=== PATIENT | female | born 1965 | race Two or more races ===

== ENCOUNTER 2019-03-24 05:00 | Emergency (ER) | payer SELFPAY ==
[~2019-03-24] VITALS: Ht 157.5 cm; Wt 68.0 kg
--- NOTE | 2019-03-24 05:16 | PHYS DOC ---
Adult General Chief Complaint Chief Complaint: CHEST PAIN HPI HPI Patient is a 53 year old f with cc of chest pain onset one year ago when she accidentally swallowed some methampheatmine she thoguht it was salt on the table since then 4 er visits for chest pain pmh none meds none no fh of cad tonight the sharp left side chest pain comes a few second at a time accompanied by "nervousness" as well as cramping of both hands and both legs and dry mouth. went to take a shower felt heart racing "and i kept feeling more and more nervous" not exertional Review of Systems Review of Systems Constitutional: Denies fever or chills [] Eyes: Denies change in visual acuity, redness, or eye pain [] HENT: Denies nasal congestion or sore throat [] Respiratory: Denies cough or shortness of breath [] Cardiovascular: No additional information not addressed in HPI [] GI: Denies abdominal pain, nausea, vomiting, bloody stools or diarrhea [] : Denies dysuria or hematuria [] Musculoskeletal: Denies back pain or joint pain [] Integument: Denies rash or skin lesions [] Neurologic: Denies headache, focal weakness or sensory changes [] Endocrine: Denies polyuria or polydipsia [] All other systems were reviewed and found to be within normal limits, except as documented in this note. Current Medications Current Medications Current Medications Medications (Trade) Dose Ordered Sig/Radha Start Time Stop Time Status Last Admin Dose Admin Aspirin (Children'S Aspirin) 324 mg 1X ONCE 03/24/19 06:00 03/24/19 06:01 03/24/19 05:55 324 MG Lorazepam (Ativan) 1 mg 1X ONCE 03/24/19 06:00 03/24/19 06:01 03/24/19 05:54 1 MG Allergies Allergies Allergies Coded Allergies Type Severity Reaction Last Updated Verified No Known Drug Allergies 03/24/19 No Physical Exam Physical Exam Constitutional: Well developed, well nourished, no acute distress, non-toxic appearance. [] HENT: Normocephalic, atraumatic, bilateral external ears normal, oropharynx m oist, no oral exudates, nose normal. [] Eyes: PERRLA, EOMI, conjunctiva normal, no discharge. [] Neck: Normal range of motion, no tenderness, supple, no stridor. [] Cardiovascular:Heart rate regular rhythm, no murmur [] Lungs & Thorax: Bilateral breath sounds clear to auscultation [] Abdomen: Bowel sounds normal, soft, no tenderness, no masses, no pulsatile masses. [] Skin: Warm, dry, no erythema, no rash. [] Back: No tenderness, no CVA tenderness. [] Extremities: No tenderness, no cyanosis, no clubbing, ROM intact, no edema. [] Neurologic: Alert and oriented X 3, normal motor function, normal sensory function, no focal deficits noted. [] Psychologic: Affect normal, judgement normal, mood anxiety noted. Current Patient Data Vital Signs Vital Signs Date Time Temp Pulse Resp B/P (MAP) Pulse Ox O2 Delivery O2 Flow Rate FiO2 03/24/19 05:04 98.7 92 16 158/76 (103) 99 Room Air 98.7 Lab Values Laboratory Tests Test 03/24/19 05:10 White Blood Count 10.0 x10^3/uL (4.0-11.0) Red Blood Count 4.54 x10^6/uL (3.50-5.40) Hemoglobin 13.6 g/dL (12.0-15.5) Hematocrit 40.4 % (36.0-47.0) Mean Corpuscular Volume 89 fL (79-100) Mean Corpuscular Hemoglobin 30 pg (25-35) Mean Corpuscular Hemoglobin Concent 34 g/dL (31-37) Red Cell Distribution Width 13.1 % (11.5-14.5) Platelet Count 177 x10^3/uL (140-400) Neutrophils (%) (Auto) 73 % (31-73) Lymphocytes (%) (Auto) 17 % (24-48) L Monocytes (%) (Auto) 6 % (0-9) Eosinophils (%) (Auto) 3 % (0-3) Basophils (%) (Auto) 1 % (0-3) Neutrophils # (Auto) 7.3 x10^3/uL (1.8-7.7) Lymphocytes # (Auto) 1.7 x10^3/uL (1.0-4.8) Monocytes # (Auto) 0.6 x10^3/uL (0.0-1.1) Eosinophils # (Auto) 0.3 x10^3/uL (0.0-0.7) Basophils # (Auto) 0.1 x10^3/uL (0.0-0.2) Prothrombin Time 11.8 SEC (11.7-14.0) Prothrombin Time INR 0.9 (0.8-1.1) Sodium Level 147 mmol/L (136-145) H Potassium Level 3.8 mmol/L (3.5-5.1) Chloride Level 111 mmol/L (98-107) H Carbon Dioxide Level 24 mmol/L (21-32) Anion Gap 12 (6-14) Blood Urea Nitrogen 18 mg/dL (7-20) Creatinine 0.6 mg/dL (0.6-1.0) Estimated GFR (Cockcroft-Gault) 104.2 BUN/Creatinine Ratio 30 (6-20) H Glucose Level 128 mg/dL (70-99) H Calcium Level 9.5 mg/dL (8.5-10.1) Total Bilirubin 0.1 mg/dL (0.2-1.0) L Aspartate Amino Transferase (AST) 12 U/L (15-37) L Alanine Aminotransferase (ALT) 21 U/L (14-59) Alkaline Phosphatase 121 U/L (46-116) H Troponin I Quantitative < 0.017 ng/mL (0.000-0.055) Total Protein 7.7 g/dL (6.4-8.2) Albumin 4.0 g/dL (3.4-5.0) Albumin/Globulin Ratio 1.1 (1.0-1.7) Laboratory Tests 03/24/19 05:10 Laboratory Tests 03/24/19 05:10 EKG EKG +nsr rate 90 normal qtc no stemi[] Radiology/Procedures Radiology/Procedures [] Impressions: Chest x-ray my interpretation was negative acute no pneumothorax bones normal heart normal Course & Med Decision Making Course & Med Decision Making Pertinent Labs and Imaging studies reviewed. (See chart for details) []heart score h 0 e 0 a 1 r 0 t 0 very atypical pain daily chest pain worse since midnight, i think one troponin is sufficient does not sound like a pe at all. no tachycardia or hypoxia. Patient was reassured to the best my ability she is quite anxious overall trial of Ativan low heart score safe for outpatient management Dragon Disclaimer Dragon Disclaimer This electronic medical record was generated, in whole or in part, using a voice recognition dictation system. Departure Departure Impression: Primary Impression: Chest pain Disposition: 01 HOME, SELF-CARE Condition: STABLE Scripts Lorazepam (ATIVAN) 1 Mg Tablet 1 MG PO BID PRN for ANXIETY / AGITATION, #20 TAB Prov: CARA QUINONES MD 03/24/19 CARA QUINONES MD Mar 24, 2019 05:15
[2019-03-24 05:33] LABS: BASO # 0.1 x10^3/uL (0.0-0.2); BASO % 1 % (0-3); EOS # 0.3 x10^3/uL (0.0-0.7); EOS % 3 % (0-3); HEMATOCRIT 40.4 % (36.0-47.0); HEMOGLOBIN 13.6 g/dL (12.0-15.5); LYMPH # 1.7 x10^3/uL (1.0-4.8); LYMPH % 17 % (24-48); MEAN CORPUSCULAR HEMOGLOBIN 30 pg (25-35); MEAN CORPUSCULAR HGB CONC 34 g/dL (31-37); MEAN CORPUSCULAR VOLUME 89 fL (79-100); MONO # 0.6 x10^3/uL (0.0-1.1); MONO % 6 % (0-9); NEUT # 7.3 x10^3/uL (1.8-7.7); NEUT % 73 % (31-73); PLATELET COUNT 177 x10^3/uL (140-400); RED BLOOD COUNT 4.54 x10^6/uL (3.50-5.40); RED CELL DISTRIBUTION WIDTH 13.1 % (11.5-14.5)
[2019-03-24 05:42] LABS: CALCIUM 9.5 mg/dL (8.5-10.1); CREATININE 0.6 mg/dL (0.6-1.0); GFR 104.2; POTASSIUM 3.8 mmol/L (3.5-5.1)
[2019-03-24 05:43] LABS: PROTHROMBIN TIME PATIENT 11.8 SEC (11.7-14.0)
[2019-03-24 05:47] LABS: ALBUMIN/GLOBULIN RATIO 1.1 (1.0-1.7); TOTAL BILIRUBIN 0.1 mg/dL (0.2-1.0); TOTAL PROTEIN 7.7 g/dL (6.4-8.2)
[2019-03-24] MEDS ORDERED: LORazepam 0.5 MG TABLET PO ONE (06:00)
[2019-03-24] MEDS ORDERED: ASPIRIN CHEWABLE 81 MG TABLET. PO ONE (06:00)
[2019-03-24] MEDS ORDERED: LORA-434 PO (06:00)
[2019-03-24 06:21] VITALS: BP 134/67
--- NOTE | 2019-03-24 07:04 | EKG ---
[address] [place] [address] Test Date: 2019-03-24 Test Time: 05:04:28 Pat Name: RJ VIVAS Department: Room: Gender: F Resident In Diagnostic Radiology: MARGARITA : 1965 Requested By: CARA QUINONES Order Number: [id number] Reading MD: Measurements Intervals [place] Rate: 90 P: 39 LA: 172 QRS: 29 QRSD: 86 T: 26 QT: 338 QTc: 417 Interpretive Statements SINUS RHYTHM NORMAL ECG No previous ECG available for comparison
--- NOTE | 2019-03-24 08:24 | RAD ---
EXAM: Chest, single view. HISTORY: Chest pain. COMPARISON: None. FINDINGS: A frontal view of the chest is obtained. There is no infiltrate, pleural effusion or pneumothorax. The heart is normal in size. IMPRESSION: No acute pulmonary finding. Electronically signed by: Margarita Curtis MD (03/24/2019 8:21 AM) [place] [id number]
== END 2019-03-24 06:17 | disposition home or self-care (01) ==
LOC: ER 05:00
DX: R07.89 Other chest pain (principal); R45.0 Nervousness; R25.2 Cramp and spasm; R00.0 Tachycardia, unspecified; R68.2 Dry mouth, unspecified
CPT/HCPCS: 36415; 71045; 80053; 84484; 85025; 85610; 93005; 99285-25

== ENCOUNTER 2019-03-30 02:59 | Emergency (ER) | payer SELFPAY ==
[~2019-03-30] VITALS: Ht 165.1 cm; Wt 74.8 kg
[~2019-03-30 02:59] MED LIST: LORA-434 PO
[2019-03-30] MEDS ORDERED: ASPIRIN 325 MG TABLET PO ONE (03:15)
[2019-03-30] MEDS ORDERED: IV NORMAL SALINE 1000ML BAG 1,000 ML IV ONE (03:15)
[2019-03-30] MEDS ORDERED: LIDO:MAALOX 1:1 20 ML SINGLE DOSE. PO PRN (03:30)
[2019-03-30] MEDS ORDERED: FAMOTIDINE 20 MG/2 ML VIAL IVP ONE (03:30)
[2019-03-30 03:50] LABS: BASO # 0.1 x10^3/uL (0.0-0.2); BASO % 1 % (0-3); BILIRUBIN,URINE NEGATIVE (NEG); CLARITY,URINE CLEAR; COLOR,URINE YELLOW; EOS # 0.3 x10^3/uL (0.0-0.7); EOS % 4 % (0-3); HEMATOCRIT 41.5 % (36.0-47.0); HEMOGLOBIN 13.9 g/dL (12.0-15.5); LYMPH # 1.9 x10^3/uL (1.0-4.8); LYMPH % 24 % (24-48); MEAN CORPUSCULAR HEMOGLOBIN 30 pg (25-35); MEAN CORPUSCULAR HGB CONC 34 g/dL (31-37); MEAN CORPUSCULAR VOLUME 88 fL (79-100); MONO # 0.6 x10^3/uL (0.0-1.1); MONO % 8 % (0-9); NEUT % 63 % (31-73); NITRITE,URINE NEGATIVE (NEG); PH,URINE 5.5; PLATELET COUNT 183 x10^3/uL (140-400); PROTEIN,URINE NEGATIVE (NEG-TRACE); RED BLOOD COUNT 4.69 x10^6/uL (3.50-5.40); RED CELL DISTRIBUTION WIDTH 13.4 % (11.5-14.5); UROBILINOGEN,URINE 0.2 mg/dL (0.2 mg/dL)
[2019-03-30 03:56] LABS: BACTERIA,URINE 0 /HPF (0-FEW); BARBITURATES NEG (NEG); BENZODIAZEPINES NEG (NEG); CANNABINOIDS NEG (NEG); COCAINE NEG (NEG); METHADONE NEG (NEG); OPIATES NEG (NEG); PHENCYCLIDINE NEG (NEG); RBC,URINE 0 /HPF (0-2); SQUAMOUS EPITHELIAL CELL,UR FEW /LPF
[2019-03-30 03:57] LABS: AMPHETAMINE/METHAMPHETAMINE NEG (NEG); PROTHROMBIN TIME PATIENT 12.2 SEC (11.7-14.0)
[2019-03-30 03:58] LABS: CALCIUM 9.6 mg/dL (8.5-10.1); CREATININE 0.7 mg/dL (0.6-1.0); GFR 87.2; POTASSIUM 3.8 mmol/L (3.5-5.1)
[2019-03-30 04:00] LABS: D-DIMER 0.44 ug/mlFEU (0.00-0.50)
[2019-03-30 04:03] LABS: ALBUMIN 4.2 g/dL (3.4-5.0); ALBUMIN/GLOBULIN RATIO 1.1 (1.0-1.7); MAGNESIUM 1.9 mg/dL (1.8-2.4); TOTAL BILIRUBIN 0.2 mg/dL (0.2-1.0); TOTAL PROTEIN 7.9 g/dL (6.4-8.2)
--- NOTE | 2019-03-30 04:05 | PHYS DOC ---
Past Medical History Past Medical History: Hypertension Past Surgical History: No Surgical History Smoking: Quit Greater Than 1 Year Alcohol Use: None Drug Use: None Adult General Chief Complaint Chief Complaint: Chest Pain HPI HPI Ms. Faust is a 53yo F w/ PMH significant for HTN, anxiety, and panic attacks presents w/ 1 day of rapid heartbeat, sense of impending doom, and epigastric tenderness w/ gastric reflux. Symptoms began around 10 AM while at "[facility]" but she did not have her lorazepam on her person at the time and was able to manage until she went to lay down for bed tonight. While laying in bed, her symptoms increased and she developed neck pain with a "my ears felt hot" sensation. States she could feel her heart try to "jump start like a car's transmission getting stuck and thumping." She denies MARROQUIN, nausea, vomiting, fever, chills, chest pain, or shortness of breath. States that she was previously seen on Sunday with similar symptoms and was treated for panic att acks. Review of Systems Review of Systems Constitutional: Denies fever or chills Eyes: Denies redness or eye pain HENT: Denies nasal congestion or sore throat Respiratory: Denies cough or shortness of breath Cardiovascular: Reports palpitations. Denies chest pain. GI: Reports epigastric pain and gastric reflux. Denies nausea, vomiting, diarrhea, constipation, or hematochezia. : Denies dysuria or hematuria. Musculoskeletal: Reports neck pain. Denies back or joint pain. Integument: Denies rash or skin lesions Neurologic: Denies headache, focal weakness or sensory changes Complete systems were reviewed and found to be within normal limits, except as documented in this note. Current Medications Current Medications Current Medications Medications (Trade) Dose Ordered Sig/Radha Start Time Stop Time Status Last Admin Dose Admin Aspirin (Milad Aspirin) 325 mg 1X ONCE 03/30/19 03:15 03/30/19 03:16 DC 03/30/19 03:47 325 MG Famotidine (Pepcid Vial) 20 mg 1X ONCE 03/30/19 03:30 03/30/19 03:31 DC 03/30/19 03:47 20 MG Lorazepam (Ativan Inj) 0.5 mg 1X ONCE 03/30/19 04:15 03/30/19 04:19 DC Multi-Ingredient Mouthwash/Gargle (Gi Cocktail) 20 ml PRN QID PRN 03/30/19 03:30 03/30/19 03:47 20 ML Sodium Chloride 1,000 ml @ 1,000 mls/hr 1X ONCE 03/30/19 03:15 03/30/19 04:14 DC 03/30/19 03:47 1,000 MLS/HR Allergies Allergies Allergies Coded Allergies Type Severity Reaction Last Updated Verified No Known Drug Allergies 03/24/19 No Physical Exam Physical Exam Constitutional: pressured speech, well developed, well nourished, no acute distress, non-toxic appearance HENT: Normocephalic, atraumatic, oropharynx dry Eyes: PERRL, EOMI, conjunctiva normal, no discharge Neck: Normal range of motion, no tenderness, supple, no cervical or supraclavicular LAD Cardiovascular: Heart rate normal, regular rhythm w/o gallops, rubs, or murmurs. UE radial pulses intact 2/4 b/l. Lungs & Thorax: Bilateral breath sounds clear to auscultation w/ mild exp iratory wheezing Abdomen: Soft, mildly distended, epigastric tenderness on deep palpation, normoactive BS x4 quadrants Skin: Warm, dry, no erythema, no rash Back: no CVA tenderness, mild cervical tenderness Extremities: No tenderness, ROM intact, no edema Neurologic: Alert and oriented X 3, normal motor function, normal sensory function, no focal deficits noted Psychologic: Affect normal, judgement normal, mood normal Current Patient Data Vital Signs Vital Signs Date Time Temp Pulse Resp B/P (MAP) Pulse Ox O2 Delivery O2 Flow Rate FiO2 03/30/19 03:11 97.8 74 16 175/91 (119) 98 Room Air 97.8 Lab Values Laboratory Tests Test 03/30/19 03:35 White Blood Count 8.0 x10^3/uL (4.0-11.0) Red Blood Count 4.69 x10^6/uL (3.50-5.40) Hemoglobin 13.9 g/dL (12.0-15.5) Hematocrit 41.5 % (36.0-47.0) Mean Corpuscular Volume 88 fL (79-100) Mean Corpuscular Hemoglobin 30 pg (25-35) Mean Corpuscular Hemoglobin Concent 34 g/dL (31-37) Red Cell Distribution Width 13.4 % (11.5-14.5) Platelet Count 183 x10^3/uL (140-400) Neutrophils (%) (Auto) 63 % (31-73) Lymphocytes (%) (Auto) 24 % (24-48) Monocytes (%) (Auto) 8 % (0-9) Eosinophils (%) (Auto) 4 % (0-3) H Basophils (%) (Auto) 1 % (0-3) Neutrophils # (Auto) 5.0 x10^3/uL (1.8-7.7) Lymphocytes # (Auto) 1.9 x10^3/uL (1.0-4.8) Monocytes # (Auto) 0.6 x10^3/uL (0.0-1.1) Eosinophils # (Auto) 0.3 x10^3/uL (0.0-0.7) Basophils # (Auto) 0.1 x10^3/uL (0.0-0.2) Prothrombin Time 12.2 SEC (11.7-14.0) Prothrombin Time INR 0.9 (0.8-1.1) Activated Partial Thromboplast Time 30 SEC (24-38) D-Dimer (Kyung) 0.44 ug/mlFEU (0.00-0.50) Urine Collection Type Unknown Urine Color Yellow Urine Clarity Clear Urine pH 5.5 Urine Specific [place] 1.010 Urine Protein Negative mg/dL (NEG-TRACE) Urine Glucose (UA) Negative mg/dL (NEG) Urine Ketones (Stick) Negative mg/dL (NEG) Urine Blood Negative (NEG) Urine Nitrite Negative (NEG) Urine Bilirubin Negative (NEG) Urine Urobilinogen Dipstick 0.2 mg/dL (0.2 mg/dL) Urine Leukocyte Esterase Trace (NEG) Urine RBC 0 /HPF (0-2) Urine WBC 1-4 /HPF (0-4) Urine Squamous Epithelial Cells Few /LPF Urine Bacteria 0 /HPF (0-FEW) Sodium Level 143 mmol/L (136-145) Potassium Level 3.8 mmol/L (3.5-5.1) Chloride Level 107 mmol/L (98-107) Carbon Dioxide Level 25 mmol/L (21-32) Anion Gap 11 (6-14) Blood Urea Nitrogen 25 mg/dL (7-20) H Creatinine 0.7 mg/dL (0.6-1.0) Estimated GFR (Cockcroft-Gault) 87.2 BUN/Creatinine Ratio 36 (6-20) H Glucose Level 138 mg/dL (70-99) H Calcium Level 9.6 mg/dL (8.5-10.1) Magnesium Level 1.9 mg/dL (1.8-2.4) Total Bilirubin 0.2 mg/dL (0.2-1.0) Aspartate Amino Transferase (AST) 9 U/L (15-37) L Alanine Aminotransferase (ALT) 16 U/L (14-59) Alkaline Phosphatase 124 U/L (46-116) H Creatine Kinase 122 U/L (26-192) Creatine Kinase MB (Mass) 1.7 ng/mL (0.0-3.6) Creatine Kinase MB Relative Index 1.4 % (0-4) Troponin I Quantitative < 0.017 ng/mL (0.000-0.055) JY-Hxd-Q-Type Natriuretic Peptide 17 pg/mL (0-124) Total Protein 7.9 g/dL (6.4-8.2) Albumin 4.2 g/dL (3.4-5.0) Albumin/Globulin Ratio 1.1 (1.0-1.7) Lipase 252 U/L (73-393) Urine Opiates Screen Neg (NEG) Urine Methadone Screen Neg (NEG) Urine Barbiturates Neg (NEG) Urine Phencyclidine Screen Neg (NEG) Urine Amphetamine/Methamphetamine Neg (NEG) Urine Benzodiazepines Screen Neg (NEG) Urine Cocaine Screen Neg (NEG) Urine Cannabinoids Screen Neg (NEG) Urine Ethyl Alcohol Neg (NEG) Laboratory Tests 03/30/19 03:35 Laboratory Tests 03/30/19 03:35 EKG EKG EKG obtained @ 0304 and read @ 03:07. NSR w/ no ST-elevations. 74 BPM.[] Radiology/Procedures Radiology/Procedures [] Course & Med Decision Making Course & Med Decision Making Pertinent Labs and Imaging studies reviewed. (See chart for details) Patient presented w/ atypical chest pain. EKG showed NSR w/o ST-elevations. Troponin and d-dimer negative. Patient stable for discharge with outpatient follow-up with PCP. She does have an appointment with her PCP on May 19 but was counseled on calling so she could be placed on a cancellation list to obtain an earlier appointment. Discussed findings and plan with patient and family, who acknowledge understanding and agreement. [] Dragon Disclaimer Dragon Disclaimer This electronic medical record was generated, in whole or in part, using a voice recognition dictation system. Departure Departure Impression: Primary Impression: Atypical chest pain Additional Impression: Anxiety Disposition: HOME, SELF-CARE Condition: STABLE Referrals: NO PCP (PCP) USAMA PAGAN MD, SCOTT S MD Patient Instructions: Anxiety and Panic Attacks, Ugul-oy-Dsuh, Chest Pain (Nonspecific), Cfuq-al-Npow, Gastritis, Adult, [id number] Scripts Famotidine (PEPCID) 20 Mg Tablet 20 MG PO HS, #14 TAB Prov: NICKI MENDEZ DO 03/30/19 Problem Qualifiers NICKI MENDEZ DO Mar 30, 2019 04:05
[2019-03-30] MEDS ORDERED: FAMO-63 PO (04:13)
--- NOTE | 2019-03-30 04:18 | PHYS DOC ---
Past Medical History Past Medical History: No Pertinent History Past Surgical History: No Surgical History Alcohol Use: None Drug Use: None Adult General Chief Complaint Chief Complaint: CHEST PAIN HPI HPI Ms. Faust is a 53yo F w/ PMH significant for who presents w/ 1 day of rapid heartbeat, sense of impending doom, and epigastric tenderness w/ gastric reflux. She denies MARROQUIN, nausea, vomiting, fever, chills, chest pain, or shortness of breath. States that she was previously seen on Sunday with similar symptoms and was treated for panic attacks. Review of Systems Review of Systems Constitutional: Denies fever or chills Eyes: Denies redness or eye pain HENT: Denies nasal congestion or sore throat Respiratory: Denies cough or shortness of breath Cardiovascular: Reports palpitations. Denies chest pain. GI: Reports epigastric pain and gastric reflux. Denies nausea, vomiting, diarrhea, constipation, or hematochezia. : Denies dysuria or hematuria. Musculoskeletal: Reports neck pain. Denies back or joint pain. Integument: Denies rash or skin lesions Neurologic: Denies headache, focal weakness or sensory changes Complete systems were reviewed and found to be within normal limits, except as documented in this note. Current Medications Current Medications Current Medications Medications (Trade) Dose Ordered Sig/Radha Start Time Stop Time Status Last Admin Dose Admin Aspirin (Milad Aspirin) 325 mg 1X ONCE 03/30/19 03:15 03/30/19 03:16 DC 03/30/19 03:47 325 MG Famotidine (Pepcid Vial) 20 mg 1X ONCE 03/30/19 03:30 03/30/19 03:31 DC 03/30/19 03:47 20 MG Lorazepam (Ativan Inj) 0.5 mg 1X ONCE 03/30/19 04:15 03/30/19 04:19 DC Multi-Ingredient Mouthwash/Gargle (Gi Cocktail) 20 ml PRN QID PRN 03/30/19 03:30 03/30/19 03:47 20 ML Sodium Chloride 1,000 ml @ 1,000 mls/hr 1X ONCE 03/30/19 03:15 03/30/19 04:14 DC 03/30/19 03:47 1,000 MLS/HR Allergies Allergies Allergies Coded Allergies Type Severity Reaction Last Updated Verified No Known Drug Allergies 03/24/19 No Physical Exam Physical Exam Constitutional: Well developed, well nourished, no acute distress, non-toxic appearance. [] HENT: Normocephalic, atraumatic, bilateral external ears normal, oropharynx moist, no oral exudates, nose normal. [] Eyes: PERRLA, EOMI, conjunctiva normal, no discharge. [] Neck: Normal range of motion, no tenderness, supple, no stridor. [] Cardiovascular:Heart rate regular rhythm, no murmur [] Lungs & Thorax: Bilateral breath sounds clear to auscultation [] Abdomen: Bowel sounds normal, soft, no tenderness, no masses, no pulsatile masses. [] Skin: Warm, dry, no erythema, no rash. [] Back: No tenderness, no CVA tenderness. [] Extremities: No tenderness, no cyanosis, no clubbing, ROM intact, no edema. [] Neurologic: Alert and oriented X 3, normal motor function, normal sensory function, no focal deficits noted. [] Psychologic: Affect normal, judgement normal, mood normal. [] Current Patient Data Vital Signs Vital Signs Date Time Temp Pulse Resp B/P (MAP) Pulse Ox O2 Delivery O2 Flow Rate FiO2 03/30/19 03:11 97.8 74 16 175/91 (119) 98 Room Air 97.8 Lab Values Laboratory Tests Test 03/30/19 03:35 White Blood Count 8.0 x10^3/uL (4.0-11.0) Red Blood Count 4.69 x10^6/uL (3.50-5.40) Hemoglobin 13.9 g/dL (12.0-15.5) Hematocrit 41.5 % (36.0-47.0) Mean Corpuscular Volume 88 fL (79-100) Mean Corpuscular Hemoglobin 30 pg (25-35) Mean Corpuscular Hemoglobin Concent 34 g/dL (31-37) Red Cell Distribution Width 13.4 % (11.5-14.5) Platelet Count 183 x10^3/uL (140-400) Neutrophils (%) (Auto) 63 % (31-73) Lymphocytes (%) (Auto) 24 % (24-48) Monocytes (%) (Auto) 8 % (0-9) Eosinophils (%) (Auto) 4 % (0-3) H Basophils (%) (Auto) 1 % (0-3) Neutrophils # (Auto) 5.0 x10^3/uL (1.8-7.7) Lymphocytes # (Auto) 1.9 x10^3/uL (1.0-4.8) Monocytes # (Auto) 0.6 x10^3/uL (0.0-1.1) Eosinophils # (Auto) 0.3 x10^3/uL (0.0-0.7) Basophils # (Auto) 0.1 x10^3/uL (0.0-0.2) Prothrombin Time 12.2 SEC (11.7-14.0) Prothrombin Time INR 0.9 (0.8-1.1) Activated Partial Thromboplast Time 30 SEC (24-38) D-Dimer (Kyung) 0.44 ug/mlFEU (0.00-0.50) Urine Collection Type Unknown Urine Color Yellow Urine Clarity Clear Urine pH 5.5 Urine Specific [place] 1.010 Urine Protein Negative mg/dL (NEG-TRACE) Urine Glucose (UA) Negative mg/dL (NEG) Urine Ketones (Stick) Negative mg/dL (NEG) Urine Blood Negative (NEG) Urine Nitrite Negative (NEG) Urine Bilirubin Negative (NEG) Urine Urobilinogen Dipstick 0.2 mg/dL (0.2 mg/dL) Urine Leukocyte Esterase Trace (NEG) Urine RBC 0 /HPF (0-2) Urine WBC 1-4 /HPF (0-4) Urine Squamous Epithelial Cells Few /LPF Urine Bacteria 0 /HPF (0-FEW) Sodium Level 143 mmol/L (136-145) Potassium Level 3.8 mmol/L (3.5-5.1) Chloride Level 107 mmol/L (98-107) Carbon Dioxide Level 25 mmol/L (21-32) Anion Gap 11 (6-14) Blood Urea Nitrogen 25 mg/dL (7-20) H Creatinine 0.7 mg/dL (0.6-1.0) Estimated GFR (Cockcroft-Gault) 87.2 BUN/Creatinine Ratio 36 (6-20) H Glucose Level 138 mg/dL (70-99) H Calcium Level 9.6 mg/dL (8.5-10.1) Magnesium Level 1.9 mg/dL (1.8-2.4) Total Bilirubin 0.2 mg/dL (0.2-1.0) Aspartate Amino Transferase (AST) 9 U/L (15-37) L Alanine Aminotransferase (ALT) 16 U/L (14-59) Alkaline Phosphatase 124 U/L (46-116) H Creatine Kinase 122 U/L (26-192) Creatine Kinase MB (Mass) 1.7 ng/mL (0.0-3.6) Creatine Kinase MB Relative Index 1.4 % (0-4) Troponin I Quantitative < 0.017 ng/mL (0.000-0.055) ZE-Cto-C-Type Natriuretic Peptide 17 pg/mL (0-124) Total Protein 7.9 g/dL (6.4-8.2) Albumin 4.2 g/dL (3.4-5.0) Albumin/Globulin Ratio 1.1 (1.0-1.7) Lipase 252 U/L (73-393) Urine Opiates Screen Neg (NEG) Urine Methadone Screen Neg (NEG) Urine Barbiturates Neg (NEG) Urine Phencyclidine Screen Neg (NEG) Urine Amphetamine/Methamphetamine Neg (NEG) Urine Benzodiazepines Screen Neg (NEG) Urine Cocaine Screen Neg (NEG) Urine Cannabinoids Screen Neg (NEG) Urine Ethyl Alcohol Neg (NEG) Laboratory Tests 03/30/19 03:35 Laboratory Tests 03/30/19 03:35 EKG EKG [] Radiology/Procedures Radiology/Procedures [] Course & Med Decision Making Course & Med Decision Making Pertinent Labs and Imaging studies reviewed. (See chart for details) [] Dragon Disclaimer Dragon Disclaimer This electronic medical record was generated, in whole or in part, using a voice recognition dictation system. Departure Departure Disposition: 01 HOME, SELF-CARE Condition: STABLE Referrals: NO PCP (PCP) Scripts Famotidine (PEPCID) 20 Mg Tablet 20 MG PO HS, #14 TAB Prov: NICKI MENDEZ DO 03/30/19 NICKI MENDEZ DO Mar 30, 2019 04:18
[2019-03-30 04:29] VITALS: BP 149/68
--- NOTE | 2019-03-30 10:55 | EKG ---
[facility] [address] [place] [address] Test Date: 2019-03-30 Test Time: 03:04:38 Pat Name: RJ VIVAS Department: Room: Gender: F [employer]: : 1965 Requested By: NICKI MENDEZ Order Number: [id number] Reading MD: Measurements Intervals [place] Rate: 74 P: 43 [place]: 176 QRS: 28 QRSD: 88 T: 11 QT: 372 QTc: 413 Interpretive Statements SINUS RHYTHM NO SPECIFIC ECG ABNORMALITIES RI6.01 No previous ECG available for comparison
== END 2019-03-30 04:20 | disposition home or self-care (01) ==
LOC: ER 02:59
DX: R07.89 Other chest pain (principal); F41.0 Panic disorder [episodic paroxysmal anxiety]; M54.2 Cervicalgia; R00.0 Tachycardia, unspecified; K21.9 Gastro-esophageal reflux disease without esophagitis; I10 Essential (primary) hypertension; Z87.891 Personal history of nicotine dependence
CPT/HCPCS: 36415; 80053; 80307; 81001; 82553; 83690; 83735; 83880; 84484; 85025; 85379; 85610; 85730; 87086; 93005; 96374; 99285; J3490; J7030